=== PATIENT | male | born 1965 | race Caucasian/White ===

== ENCOUNTER 2022-06-16 16:53 | Outpatient (CLI) | payer BC, SELFPAY | END 2022-06-16 16:54 | disposition home or self-care (01) | LOC: AMB 06-20 05:16 | PROVIDERS: Visit Provider Family Medicine | DX: S09.93XA Unspecified injury of face, initial encounter (principal); W01.0XXA Fall on same level from slipping, tripping and stumbling without subsequent striking against object, initial encounter; Y92.480 Sidewalk as the place of occurrence of the external cause | CPT/HCPCS: A0425; A0427 ==

== ENCOUNTER 2022-06-16 17:11 | Emergency (ER) | payer BC, SELFPAY ==
[2022-06-16] VITALS (16 sets, daily range): BP systolic 114–155; BP diastolic 62–104; PULSE 89–111; RESP 18; TEMP 37.1; O2SAT 94–100; BMI 26.6
--- NOTE | 2022-06-16 17:20 | CRLHL7_ITS ---
For Patients: As a result of the Century Cures Act, medical imaging exams and procedure reports are released immediately into your electronic medical record. You may view this report before your referring provider. If you have questions, please contact your health care provider. DATE: 06/16/2022. CLINICAL HISTORY: Fall. TECHNIQUE: Standard CT scanning of the facial bones was performed. COMPARISON: None available. FINDINGS: No acute displaced fracture of the facial bones. The bony orbits are intact. The pterygoid plates are intact. The mandible is intact. The jc of the maxillary sinus are intact. There is poor dentition with multiple missing teeth and dental caries. Moderate polypoid mucosal thickening of the inferior right maxillary sinus and very mild mucosal thickening of the inferior left maxillary sinus. IMPRESSION: No acute displaced fracture of the facial bones. Please note that all CT scans at this facility use dose modulation, iterative reconstruction, and/or weight-based dosing when appropriate to reduce radiation dose to as low as reasonably achievable. Dictated by Peter Norman MD @ 06/16/2022 6:12:34 PM (Electronically Signed)
--- NOTE | 2022-06-16 17:20 | CRLHL7_ITS ---
For Patients: As a result of the Cures Act, medical imaging exams and procedure reports are released immediately into your electronic medical record. You may view this report before your referring provider. If you have questions, please contact your health care provider. DATE: 06/16/2022. CLINICAL HISTORY: Trauma. TECHNIQUE: Helical CT acquisition of the cervical spine was performed. Coronal and sagittal reformations were performed and interpreted. COMPARISON: CT cervical spine dated 10/30/2020. FINDINGS: There is no evidence of acute displaced fracture or traumatic malalignment of the cervical spine. The facets are well aligned. Vertebral body heights are maintained without evidence of significant compression deformity. No evidence of significant trauma at the craniocervical junction. Cervical spondylosis. No evidence of severe spinal canal stenosis. The visualized prevertebral soft tissues are unremarkable. The visualized lung apices are unremarkable. IMPRESSION: No acute displaced fracture or traumatic malalignment of the cervical spine. Please note that all CT scans at this facility use dose modulation, iterative reconstruction, and/or weight-based dosing when appropriate to reduce radiation dose to as low as reasonably achievable. Dictated by Peter Norman MD @ 06/16/2022 6:15:31 PM (Electronically Signed)
--- NOTE | 2022-06-16 17:20 | CRLHL7_ITS ---
For Patients: As a result of the Century Cures Act, medical imaging exams and procedure reports are released immediately into your electronic medical record. You may view this report before your referring provider. If you have questions, please contact your health care provider. DATE: 06/16/2022. CLINICAL HISTORY: Fall. TECHNIQUE: Standard helical CT image acquisition of the brain was performed. COMPARISON: None available. FINDINGS: There is no intracranial hemorrhage. No extra-axial collection, mass effect, or midline shift. Baeza-white matter differentiation is preserved. Mild generalized parenchymal volume loss. No acute hydrocephalus. Incidental note is made of a priyanka cisterna magna. No displaced calvarial fracture. The orbits are unremarkable. Moderate polypoid mucosal thickening of the inferior right maxillary sinus. The mastoid air cells are unremarkable. The soft tissues are unremarkable. IMPRESSION: 1. No CT evidence of acute intracranial abnormality or closed-head injury. 2. Mild generalized parenchymal volume loss. 3. Moderate polypoid mucosal thickening of the right maxillary sinus. Please note that all CT scans at this facility use dose modulation, iterative reconstruction, and/or weight-based dosing when appropriate to reduce radiation dose to as low as reasonably achievable. Dictated by Peter Norman MD @ 06/16/2022 6:05:29 PM (Electronically Signed)
--- NOTE | 2022-06-16 17:21 | ED_ITS ---
HPI - Fall General Chief Complaint: Fall/Minor Trauma Stated Complaint: Fall Time Seen by Provider: 06/16/22 17:14 History of Present Illness HPI Narrative: This 56-year-old male comes in by ambulance for evaluation for injuries from a fall that occurred just prior to arrival. The patient states that he was walking and tripped. He states that he called the ambulance himself and they helped him get up to the gurney to come here. He states that he is not having any pain. He does have blood around his nose and his mouth and in his mouth. His speech is slurred typical of alcohol intoxication however he denied this when the nurses asked. He denies having any headache or neck pain. He states that he is not on any blood thinners. Related Data Home Medications Medication Instructions Recorded Confirmed duloxetine 30 mg capsule,delayed 30 mg PO QDAY 01/18/22 02/01/22 release Allergies Allergy/AdvReac Type Severity Reaction Status Date / Time No Known Drug Allergies Allergy Verified 02/01/22 12:15 Review of Systems Status of ROS: Reports: 10 or more systems reviewed and unremarkable except as noted in History and below Narrative: Constitutional: No fevers, no weight gain or loss. Eyes: No discharge. No vision changes. HENT: No congestion, no sore throat, no ear pain. Cardiovascular: No chest pain, no palpitations. Respiratory: No shortness of breath, no wheezes, no cough. Gastrointestinal: No abdominal pain, no vomiting, no diarrhea. Genitourinary: No dysuria, no hematuria. Musculoskeletal: Normal range of motion. Skin: No rashes, no pruritis. Neurological: No dizziness, weakness, sensory change, speech change. Endo/Heme/Allergies: No bruising or bleeding. No polydipsia. Pysch: no suicidality, no anxiety, no insomnia. All other systems reviewed and are negative. PFSH PFSH Social History Smoking Status: Never smoker Do you use any of these nicotine containing products: None Second hand tobacco smoke exposure: No How often do you have a drink containing alcohol: 4 or more times a week How many standard drinks containing alcohol do you have on a typical day: 7 to 9 How often do you have six or more drinks on one occasion: Daily or almost daily AUDIT-C Alcohol total score: 11 Non-prescribed substance use: denies use service: No Exam Narrative: Exam Narrative: Constitutional: Well-developed, well-nourished. HEENT: Swelling around his nose and upper lip with blood in these areas. There is no blood in either nostril but there is some blood present in his mouth. Neck: Normal range of motion. Nontender. Supple. Heart: Regular. No murmurs. Tachycardia, rate 111 beats per minute. Intact distal pulses. Lungs: Clear to auscultation. No chest discomfort. No wheezes, rhonchi, or rales. Abdomen: Normal bowel sounds. Nontender. No rebound tenderness. Genitalia: Deferred. Back: No midline tenderness. Normal range of motion. Extremities: Normal range of motion. No injury. Skin: Intact. No rash. Warm. No erythema or pallor. Neurologic: No altered sensation. No weakness. Alert and oriented. Psychiatric: No suicidality. No anxiety or depression. No insomnia. Nursing notes and vitals signs are reviewed. Const: Vital Signs, click to edit/add: Vital Signs - 24 hr 06/16/22 17:15 06/16/22 17:15 06/16/22 18:16 Temperature 98.8 F 98.8 F Pulse Rate 98 Pulse Rate [Pulse Oximeter] 111 H 111 H Respiratory Rate 18 18 Blood Pressure 133/83 Blood Pressure [Ri ght Upper Arm] 155/104 H 155/104 H Pulse Oximetry 96 94 94 Oxygen Delivery Me thod Room Air Room Air Fraction of Inspir ed Oxygen 06/16/22 18:17 06/16/22 17:21 06/16/22 17:30 Temperature Pulse Rate 97 Pulse Rate [Pulse Oximeter] 92 95 Respiratory Rate 18 Blood Pressure Blood Pressure [Ri ght Upper Arm] 149/99 H 130/90 H Pulse Oximetry 94 94 99 Oxygen Delivery Me thod Nasal Cannula Nasal Cannula Fraction of Inspir ed Oxygen 2 2 06/16/22 18:10 Temperature Pulse Rate Pulse Rate [Pulse Oximeter] 111 H Respiratory Rate Blood Pressure Blood Pressure [Ri ght Upper Arm] Pulse Oximetry 94 Oxygen Delivery Me thod Nasal Cannula Fraction of Inspir ed Oxygen 2 Course Vital Signs Vital signs: Initial Vital Signs Temperature 98.8 F 06/16/22 17:15 Temperature Source Temporal Artery Scan 06/16/22 17:15 Pulse Rate 111 H 06/16/22 17:15 Respiratory Rate 18 06/16/22 17:15 Blood Pressure 155/104 H 06/16/22 17:15 Blood Pressure Mean 121 H 06/16/22 17:15 Blood Pressure Position Supine 06/16/22 17:15 Pulse Oximetry 96 06/16/22 17:15 Oxygen Delivery Method Room Air 06/16/22 17:15 Vital Signs Temperature 98.8 F 06/16/22 17:15 Pulse Rate 111 H 06/16/22 17:15 Respiratory Rate 18 06/16/22 17:15 Blood Pressure 155/104 H 06/16/22 17:15 Pulse Oximetry 96 06/16/22 17:15 Oxygen Delivery Method Room Air 06/16/22 17:15 Temperature 98.8 F 06/16/22 17:15 Pulse Rate 97 06/16/22 18:17 Respiratory Rate 18 06/16/22 17:21 Blood Pressure 133/83 06/16/22 18:16 Pulse Oximetry 94 06/16/22 18:17 Oxygen Delivery Method Nasal Cannula 06/16/22 18:10 Fraction of Inspired Oxygen 2 06/16/22 18:10 MDM - Fall MDM Narrative Medical decision making narrative: This patient comes in by ambulance for evaluation for injuries from a fall that occurred just prior to arrival. An IV was established and labs were drawn. Labs returned normal except for significant blood alcohol level at 0.38. CT imaging of the head, C-spine, and facial bones returned with no acute findings. The patient is not showing any other sign of injury. He seemed surprised that his blood alcohol level was as high as it was. He is rather functional despite this high level. He is okay to return home with an escort. Lab Data Labs: Lab Results 06/16/22 Range/Units 17:22 WBC 4.76 (4.50-11.00) K/uL RBC 4.70 (4.30-5.90) m/uL Hgb 15.9 (13.5-17.5) gm/dL Hct 47.0 (37.0-53.0) % MCV 100 (80-100) fL MCH 34 (26-34) pg MCHC 34 (32-36) gm/dL RDW Coeff of Rosanna 11.4 L (11.5-15.5) % Plt Count 215 (140-440) K/uL Neut % (Auto) 56.6 (42.0-72.0) % Lymph % (Auto) 31.5 (20-44) % [place] % (Auto) 9.2 (0.0-11.0) % Eos % (Auto) 1.5 (0.0-7.0) % Baso % (Auto) 0.4 (0.0-3.0) % Neut # (Auto) 2.69 (1.7-7.0) K/uL Lymph # (Auto) 1.50 (0.90-2.90) K/uL [place] # (Auto) 0.40 (0.00-0.90) K/UL Eos # (Auto) 0.07 (0.00-0.50) K/uL Baso # (Auto) 0.02 (0.00-0.30) K/uL Sodium 147 (135-149) mmol/L Potassium 4.2 (3.6-5.1) mmol/L Chloride 106 (96-114) mmol/L Carbon Dioxide 30 (20-32) mmol/L BUN 12 (7-30) mg/dL Creatinine 1.1 (0.5-1.5) mg/dL Estimated Creat Clear 80.34 Estimated GFR 78 ml/min Glucose 107 (60-115) mg/dL Calcium 8.6 (8.4-10.6) mg/dL Ethyl Alcohol 0.38 H* (0.01-0.03) % Imaging Data CT scan - head: Radiologist's impression: 1. No CT evidence of acute intracranial abnormality or closed-head injury. 2. Mild generalized parenchymal volume loss. 3. Moderate polypoid mucosal thickening of the right maxillary sinus. CT C Spine: Radiologist's impression: No acute displaced fracture or traumatic malalignment of the cervical spine. CT Facial bones: Radiologist's impression: No acute displaced fracture of the facial bones. Discharge Plan Discharge Clinical Impression: Alcohol intoxication, Facial contusion Patient Disposition: Home, Self-Care Condition: Unchanged Additional Instructions: Use [id number] medicines as needed and directed. Follow up with MD or return if worsening. Prescriptions: No Action duloxetine 30 mg capsule,delayed release(DR/EC) 30 mg PO QDAY Follow Up/Referrals: Provider,Not a Local [Primary Care Provider] - Stand Alone Forms: [facility] Info Instructions
[2022-06-16 17:39] LABS: Basophils Absolute Auto 0.02 K/uL (0.00-0.30); Basophils Percent Auto 0.4 % (0.0-3.0); Eosinophils Absolute Auto 0.07 K/uL (0.00-0.50); Eosinophils Percent Auto 1.5 % (0.0-7.0); Hemoglobin* 15.9 gm/dL (13.5-17.5); Immature Granulocytes Abs Auto 0.04 K/uL (0.00-0.30); Immature Granulocytes Pct Auto 0.8 %; Lymphocytes Percent Auto 31.5 % (20-44); Mean Corpuscular HGB Conc 34 gm/dL (32-36); Mean Corpuscular Hemoglobin 34 pg (26-34); Mean Corpuscular Volume 100 fL (80-100); Monocytes Percent Auto 9.2 % (0.0-11.0); Neutrophils Absolute Auto 2.69 K/uL (1.7-7.0); Neutrophils Percent Auto 56.6 % (42.0-72.0); Platelet Count* 215 K/uL (140-440); RDW Coefficient of Variation % 11.4 % (11.5-15.5); White Blood Count* 4.76 K/uL (4.50-11.00)
[2022-06-16 17:50] LABS: Slide Review Reflex No
[2022-06-16 17:55] LABS: Chloride* 106 mmol/L (96-114); Potassium* 4.2 mmol/L (3.6-5.1); Sodium* 147 mmol/L (135-149)
[2022-06-16 17:57] LABS: Carbon Dioxide* 30 mmol/L (20-32); Creatinine* 1.1 mg/dL (0.5-1.5); Est. Creatinine Clearance* 80.34; Estimated Glomerular Filt Rate 78 ml/min
[2022-06-16 17:58] LABS: Blood Urea Nitrogen* 12 mg/dL (7-30); Calcium* 8.6 mg/dL (8.4-10.6); Glucose* 107 mg/dL (60-115)
[2022-06-16 18:07] LABS: Ethanol* 0.38 % (0.01-0.03)
== END 2022-06-16 19:44 | disposition home or self-care (01) ==
PROVIDERS: Emergency Provider Emergency Medicine Emergency Medical Services
DX: S00.83XA Contusion of other part of head, initial encounter (principal); F10.129 Alcohol abuse with intoxication, unspecified
CPT/HCPCS: 36415; 70450; 70486; 72125; 80048; 82077; 85025; 99283; 99285; 99291; G0390

== ENCOUNTER 2022-08-24 12:30 | Outpatient (CLI) | payer BC, SELFPAY | END 2022-08-24 12:31 | disposition home or self-care (01) | PROVIDERS: Visit Provider Nurse Practitioner Family | DX: R39.9 Unspecified symptoms and signs involving the genitourinary system (principal) | CPT/HCPCS: 87086 ==

== ENCOUNTER 2022-12-06 15:55 | Emergency (ER) | payer BC, SELFPAY ==
[2022-12-06 16:12] VITALS: BP 130/84; PULSE 85; RESP 18; TEMP 36.4; O2SAT 99; BMI 23.7
--- NOTE | 2022-12-06 16:19 | ED.NURSE ---
Patient belongings taken to nurses station, patient is on camera for safety.
--- NOTE | 2022-12-06 16:28 | ED_ITS ---
HPI - Psych General Date Seen: 12/06/22 Chief Complaint: Psychiatric Problem/Disorder Stated Complaint: Severe depression suicidal Time Seen by Provider: 12/06/22 16:02 Source: patient Mode of arrival: ambulatory Limitations: no limitations History of Present Illness HPI Narrative: Patient is a 57-year-old male with a history of depression presenting to emergency department for suicidal thoughts and anxiety. He states past 5 or 6 states his depression is getting worse he has been having several panic attacks. States he has been previously hospitalized for suicidal thoughts. Does state he has suicidal thoughts and now and does not know if he would act on them if he goes home. Denies having any weapons in his home. Denies homicidal thoughts. Denies auditory or visual hallucinations. Denies chest pain shortness of breath, headache, vision changes, weakness, numbness, abdominal pain, nausea/vomiting. Related Data Home Medications Medication Instructions Recorded Confirmed duloxetine 30 mg capsule,delayed 30 mg PO QDAY 01/18/22 02/01/22 release Allergies Allergy/AdvReac Type Severity Reaction Status Date / Time No Known Drug Allergies Allergy Verified 12/06/22 16:17 Review of Systems Status of ROS: Reports: 10 or more systems reviewed and unremarkable except as noted in History and below [facility] Medical History Urinary symptom or sign ?R39.9 - Unspecified symptoms and signs involving the genitourinary system (ICD-10) Feels feverish ?R50.9 - Fever, unspecified (ICD-10) Social History Smoking Status: Never smoker Do you use any of these nicotine containing products: None Second hand tobacco smoke exposure: No How often do you have a drink containing alcohol: never How many standard drinks containing alcohol do you have on a typical day: 7 to 9 How often do you have six or more drinks on one occasion: Daily or almost daily AUDIT-C Alcohol total score: 7 Non-prescribed substance use: denies use service: No Exam Narrative: Exam Narrative: Const: Well-nourished, Well-developed, in mild distress Eyes: PERRL, no conjunctival injection, and symmetrical lids HENT: Atraumatic external nose and ears. Moist mucous membranes. Neck: Symmetric, trachea midline, No thyromegaly. CVS: RRR, No murmurs or gallops. Peripheral pulses 2+ and equal in all extremities RESP: Unlabored respiratory effort. Clear to auscultation bilaterally. GI: Nontender/Nondistended, No rebound or guarding. MSK:Extremities w/o deformity, Normal Active ROM Skin: Warm, Dry. No rashes or lesions. Neuro: Normal Muscle tone, No focal neurological deficits. Psych: Awake, Alert, & Oriented x3. Appropriate mood and affect. Const: Vital Signs, click to edit/add: Vital Signs - 24 hr 12/06/22 16:12 Temperature 97.6 F Pulse Rate [Pulse Oximeter] 85 Respiratory Rate 18 Blood Pressure [Ri ght Upper Arm] 130/84 Pulse Oximetry 99 Oxygen Delivery Me thod Room Air Course Vital Signs Vital signs: Initial Vital Signs Temperature 97.6 F 12/06/22 16:12 Temperature Source Temporal Artery Scan 12/06/22 16:12 Pulse Rate 85 12/06/22 16:12 Respiratory Rate 18 12/06/22 16:12 Blood Pressure 130/84 12/06/22 16:12 Blood Pressure Mean 99 12/06/22 16:12 Pulse Oximetry 99 12/06/22 16:12 Oxygen Delivery Method Room Air 12/06/22 16:12 Vital Signs Temperature 97.6 F 12/06/22 16:12 Pulse Rate 85 12/06/22 16:12 Respiratory Rate 18 12/06/22 16:12 Blood Pressure 130/84 12/06/22 16:12 Pulse Oximetry 99 12/06/22 16:12 Oxygen Delivery Method Room Air 12/06/22 16:12 Temperature 97.6 F 12/06/22 16:12 Pulse Rate 85 12/06/22 16:12 Respiratory Rate 18 12/06/22 16:12 Blood Pressure 130/84 12/06/22 16:12 Pulse Oximetry 99 12/06/22 16:12 Oxygen Delivery Method Room Air 12/06/22 16:12 MDM - Psych MDM Narrative Medical decision making narrative: Patient is a 57-year-old male presenting to emergency department for suicidal thoughts. He is unsure feel like numbness he feels home. Does not have exact plan at this time. Spoken about talking to [facility] about possible admission versus discharge the safety plan. He is agreeable to this plan at this time. Due to possibility of admission I did order mental health lab workup for him. Patient's labs all returned showing no concerning abnormalities. After his assessment by [facility] they state they developed a safety plan for him in the patient like to be discharged home. He states he does not want to hurt himself in his mostly this having issues with anxiety. He does have a appointment scheduled on December 17 with psychiatry. He is agreeable to this plan Lab Data Labs: Lab Results 12/06/22 Range/Units 16:25 WBC 4.91 (4.50-11.00) K/uL RBC 4.55 (4.30-5.90) m/uL Hgb 15.2 (13.5-17.5) gm/dL Hct 44.4 (37.0-53.0) % MCV 98 (80-100) fL MCH 33 (26-34) pg MCHC 34 (32-36) gm/dL RDW Coeff of Rosanna 11.7 (11.5-15.5) % Plt Count 192 (140-440) K/uL Neut % (Auto) 74.3 H (42.0-72.0) % Lymph % (Auto) 15.1 L (20-44) % [place] % (Auto) 9.6 (0.0-11.0) % Eos % (Auto) 0.2 (0.0-7.0) % Baso % (Auto) 0.6 (0.0-3.0) % Neut # (Auto) 3.60 (1.7-7.0) K/uL Lymph # (Auto) 0.70 L (0.90-2.90) K/uL [place] # (Auto) 0.50 (0.00-0.90) K/UL Eos # (Auto) 0.01 (0.00-0.50) K/uL Baso # (Auto) 0.03 (0.00-0.30) K/uL Abs Immat Gran (auto) 0.01 (0.00-0.30) K/uL Imm/Tot Granulo (auto) 0.2 % Sodium 136 (135-149) mmol/L Potassium 3.7 (3.6-5.1) mmol/L Chloride 101 (96-114) mmol/L Carbon Dioxide 25 (20-32) mmol/L Anion Gap 10 (7-15) mEq/L BUN 11 (7-30) mg/dL Creatinine 0.9 (0.5-1.5) mg/dL Estimated Creat Clear 91.25 Estimated GFR 98 ml/min Glucose 126 H (60-115) mg/dL Calcium 9.0 (8.4-10.6) mg/dL Total Bilirubin 1.1 (0.1-1.5) mg/dL AST 47 H (12-35) U/L ALT 24 (4-50) U/L Alkaline Phosphatase 62 (40-150) U/L Total Protein 7.7 (6.0-8.3) g/dL Albumin 4.6 (3.3-5.0) g/dL Salicylates < 1.0 L (1.0-10) mg/dL Acetaminophen < 10.0 L (10.0-30.0) ug/mL Ethyl Alcohol < 0.01 L (0.01-0.03) % Discharge Plan Discharge Clinical Impression: Depression Qualifiers: Depression Type: unspecified Qualified Code(s): F32.A - Depression, unspecified Patient Disposition: Home, Self-Care Condition: Stable Instructions: Depression (ED) Additional Instructions: Return to the emergency department immediately if your concerned you will hurt herself or others. Otherwise keep your appointment that your scheduled for on December 17 for psychiatry. Prescriptions: No Action duloxetine 30 mg capsule,delayed release(DR/EC) 30 mg PO QDAY Follow Up/Referrals: Provider,Not a Local [Primary Care Provider] - Stand Alone Forms: [email or web address] Info Instructions
[2022-12-06 16:31] LABS: Basophils Absolute Auto 0.03 K/uL (0.00-0.30); Basophils Percent Auto 0.6 % (0.0-3.0); Eosinophils Absolute Auto 0.01 K/uL (0.00-0.50); Eosinophils Percent Auto 0.2 % (0.0-7.0); Hematocrit 44.4 % (37.0-53.0); Hemoglobin* 15.2 gm/dL (13.5-17.5); Immature Granulocytes Abs Auto 0.01 K/uL (0.00-0.30); Immature Granulocytes Pct Auto 0.2 %; Lymphocytes Percent Auto 15.1 % (20-44); Mean Corpuscular HGB Conc 34 gm/dL (32-36); Mean Corpuscular Hemoglobin 33 pg (26-34); Mean Corpuscular Volume 98 fL (80-100); Monocytes Percent Auto 9.6 % (0.0-11.0); Neutrophils Percent Auto 74.3 % (42.0-72.0); Platelet Count* 192 K/uL (140-440); RDW Coefficient of Variation % 11.7 % (11.5-15.5); Red Blood Count 4.55 m/uL (4.30-5.90); White Blood Count* 4.91 K/uL (4.50-11.00)
[2022-12-06 16:35] LABS: Slide Review Reflex No
--- NOTE | 2022-12-06 16:38 | ED.NURSE ---
Patient participating in [facility] assessment via telehealth.
[2022-12-06 17:02] LABS: Albumin* 4.6 g/dL (3.3-5.0); Chloride* 101 mmol/L (96-114); Sodium* 136 mmol/L (135-149)
[2022-12-06 17:03] LABS: Potassium* 3.7 mmol/L (3.6-5.1)
[2022-12-06 17:04] LABS: Anion Gap 10 mEq/L (7-15); Bilirubin Total* 1.1 mg/dL (0.1-1.5); Carbon Dioxide* 25 mmol/L (20-32); Creatinine* 0.9 mg/dL (0.5-1.5); Est. Creatinine Clearance* 91.25; Estimated Glomerular Filt Rate 98 ml/min
[2022-12-06 17:05] LABS: Alanine Aminotransferase* 24 U/L (4-50); Alkaline Phosphatase* 62 U/L (40-150); Aspartate Amino Transferase* 47 U/L (12-35); Blood Urea Nitrogen* 11 mg/dL (7-30); Glucose* 126 mg/dL (60-115); Total Protein* 7.7 g/dL (6.0-8.3)
[2022-12-06 17:07] LABS: Acetaminophen* < 10.0 ug/mL (10.0-30.0); Ethanol* < 0.01 % (0.01-0.03); Salicylate* < 1.0 mg/dL (1.0-10)
--- NOTE | 2022-12-06 18:42 | ED.NURSE ---
Patient discharged to home with safety plan that was created by [facility]. Authorization to release information was also signed and faxed to [facility]. Patient to have follow up appoint with therapist on December 17.
== END 2022-12-06 18:02 | disposition home or self-care (01) ==
PROVIDERS: Emergency Provider Student in an Organized Health Care Education/Training Program
DX: F32.A Depression, unspecified (principal)
CPT/HCPCS: 36415; 80053; 80143; 80179; 81003; 82077; 85025; 99283